=== PATIENT | female | born 1995 | race Caucasian/White ===

== ENCOUNTER 2017-07-10 18:05 | Emergency (ER) | payer BC ==
[~2017-07-10] VITALS: Ht 152.4 cm; Wt 54.0 kg
[2017-07-10 18:14] VITALS: BP 114/84
== END 2017-07-10 21:58 | disposition left against medical advice (07) ==
LOC: ER 18:05
DX: Z76.0 Encounter for issue of repeat prescription (principal); Z53.21 Procedure and treatment not carried out due to patient leaving prior to being seen by health care provider

== ENCOUNTER 2018-01-24 07:01 | Emergency (ER) | payer BC, MEDICAID ==
[~2018-01-24] VITALS: Ht 157.5 cm; Wt 50.3 kg
[2018-01-24] MEDS ORDERED: SODIUM CHLORIDE 0.9% 1,000 ML IV ONE ×2 (07:05)
[2018-01-24] MEDS ORDERED: LORazepam 2MG/ML-1ML VIAL IV ONE (07:15)
[2018-01-24] MEDS ORDERED: LEVETIRACETAM INJ 500 MG in D5W 5% 100 ML IV ONE (07:45)
[2018-01-24 07:49] LABS: Basophils # (auto) 0 uL; Basophils % (auto) 0.4 % (0.0-2.0); Eosinophils # (auto) 0.3 uL; Eosinophils % (auto) 4.8 % (0.0-7.0); Hematocrit 43.6 % (36.0-46.0); Hemoglobin 14.8 g/dL (12.2-16.2); Lymphocytes # (auto) 3.3 uL; Lymphocytes % (auto) 49.9 % (10.0-50.0); Mean Corpuscular Hemoglobin 31.4 pg (28.0-32.0); Mean Corpuscular Volume 92.4 fL (80.0-100.0); Monocytes % (auto) 14.9 % (0.0-12.0); Neutrophils # (auto) 1.9 uL; Nucleated Red Blood Cells % 0.1 %; Platelet Count (auto) 241 10^3/uL (140-450); Red Blood Cells 4.72 10^6/uL (4.0-5.20); Red Cell Distribution Width 13.9 % (11.8-14.3); White Blood Cell 6.5 10^3/uL (4.4-10.8)
[2018-01-24 08:08] LABS: Albumin 3.4 g/dL (3.4-5.0); BUN/Creatinine Ratio 7.2; Bilirubin, Total 0.5 mg/dL (0.2-1.0); Calcium 8.6 mg/dL (8.5-10.1); Potassium 3.4 mmol/L (3.5-5.1); Total Protein 7.1 g/dL (6.4-8.2)
[2018-01-24] MEDS ORDERED: POTASSIUM CHL 20MEQ/100ML 100 ML IV ONE (09:30)
[2018-01-24 11:10] VITALS: BP 108/66
== END 2018-01-24 11:45 | disposition home or self-care (01) ==
LOC: ER 07:01 → EDBD 07:01 → ER 11:45
DX: R56.9 Unspecified convulsions (principal)
CPT/HCPCS: 36415; 80053; 82542; 85025; 96361; 96365; 96375; 99285; J1953; J3480; J7030; J7060